=== PATIENT | female | born 1995 | race African-American/Black ===

== ENCOUNTER 2017-08-06 05:19 | Inpatient (IN) ==
[2017-08-06] MEDS ORDERED: diphenhydrAMINE 50 MG/1 ML VIAL IV PRN ×2 (05:30→09:00)
[2017-08-06] MEDS ORDERED: OXYTOCIN/LR 20 UNIT/1,000 ML BAG IV SCH (05:30)
[2017-08-06] MEDS ORDERED: ONDANSETRON 4 MG/2 ML VIAL IV PRN ×2 (05:30→20:51)
[2017-08-06] MEDS ORDERED: PENICILLIN G POTASSIUM INJ 5,000,000 UNIT in SODIUM CHLORIDE 0.9% 100 ML IV ONE (06:00)
[2017-08-06 06:16] LABS: Basophils % 0.3 % (0.0-0.8); Eosinophils # 0.1 10*3/uL (0.0-0.87); Eosinophils % 0.9 % (0.00-10.9); Hematocrit 27.1 VOL% (35.7-47.0); Hemoglobin 8.4 GM/DL (12.0-16.0); Immature Granulocytes % 1.1 %; Immature Granulocytes Absolute 0.08 #; Lymphocytes # 1.1 10*3/uL (1.4-4.0); Lymphocytes % 16.1 % (21.3-54.2); Mean Corpuscular Hemoglobin 24 PG (27-34); Mean Corpuscular Volume 77.9 FL (87-102); Mean Platelet Volume 11.9 FL (9.6-12.0); Monocytes # 0.5 10*3/uL (0.11-0.8); Monocytes % 6.8 % (1.7-12.7); Neutrophils # 5.2 10*3/uL (1.4-7.4); Neutrophils % 74.8 % (38.7-73.9); Platelet Count 207 T/CUMM (130-400); Red Blood Count 3.48 MC/CUMM (3.8-5.5); Red Cell Distribution Width 15.8 % (9.3-17.3)
[2017-08-06] MEDS ORDERED: AMPICILLIN INJ 2,000 MG in SODIUM CHLORIDE 0.9% 100 ML IV ONE (06:30)
[2017-08-06 06:40] LABS: Albumin 2.9 G/DL (3.4-5.0); Bilirubin,Total 0.6 MG/DL (0.2-1.0); Calcium 8.8 MG/DL (8.5-10.1); Osmolality,Calculated 272.7 MOS/KG (273-304); Potassium 3.7 MMOL/L (3.5-5.1); Total Protein 6.9 G/DL (6.4-8.3)
[2017-08-06] MEDS ORDERED: CITRIC ACID/SODIUM CITRATE 30 ML UDCUP PO ONE ×2 (09:00→14:30)
[2017-08-06] MEDS ORDERED: FAMOTIDINE 20 MG/2 ML VIAL IV ONE ×2 (09:00→14:30)
[2017-08-06] MEDS ORDERED: ePHEDrine 50 MG/ML AMP IV PRN (09:00)
[2017-08-06] MEDS ORDERED: PROMETHAZINE 25 MG/1 ML VIAL IM ONE (09:00)
[2017-08-06] MEDS ORDERED: LACTATED RINGERS 1,000 ML IV ONE (09:00)
[2017-08-06] MEDS ORDERED: LACTATED RINGERS 250 ML IV PRN (09:00)
[2017-08-06] MEDS ORDERED: fentaNYL 2 MCG/ROPIV 0.2% EPID 150 ML EPIDURAL SCH (09:30)
[2017-08-06] MEDS ORDERED: LACTATED RINGERS 1,000 ML IV SCH ×2 (11:00→20:51)
[2017-08-06] MEDS ORDERED: AMPICILLIN INJ 1,000 MG in SODIUM CHLORIDE 0.9% 100 ML IV SCH (11:00)
[2017-08-06 11:34] LABS: Apearance,Urine CLEAR (Clear); Bacteria,Urine Occasional /HPF (Few); Bilirubin,Urine Negative (Negative); Blood, Urine Negative (Negative); Glucose,Urine (UA) Negative (Negative); Ketones,Urine 20 mg/dL (Negative); Mucus,Urine Occasional /LPF (Occasional); Nitrite,Urine Negative (Negative); Protein,Urine Negative; RBC,Urine <1 /HPF (0-4); Squamous Epithelial Cell,Urine Occasional /HPF (0-10); Urine Color Yellow (Yellow); Urine Specific Gravity 1.023 (1.001-1.035); WBC,Urine <1 /HPF (0-6)
[2017-08-06] MEDS ORDERED: BUTORPHANOL 2 MG/ML VIAL IV PRN (12:23)
[2017-08-06] MEDS ORDERED: MEPERIDINE 50 MG/1 ML VIAL IV PRN (12:23)
[2017-08-06] MEDS ORDERED: hydrOXYzine HCL 25 MG/1 ML VIAL IM PRN (12:24)
[2017-08-06] MEDS ORDERED: INFLUENZA VIRUS VACCINE 0.5 ML SYRINGE IM ONE (13:00)
[2017-08-06] MEDS ORDERED: IBUPROFEN 800 MG TABLET PO PRN ×2 (15:23→20:51)
[2017-08-06] MEDS ORDERED: ACETAMINOPHEN/CODEINE 300-30 MG TABLET PO PRN (15:23)
[2017-08-06] MEDS ORDERED: MAGNESIUM HYDROXIDE SUSP 30 ML UDCUP PO PRN (20:51)
[2017-08-06] MEDS ORDERED: BISACODYL 10 MG SUPP RECTAL PRN (20:51)
[2017-08-06] MEDS ORDERED: ACETAMINOPHEN 325 MG TABLET PO PRN (20:51)
[2017-08-06] MEDS ORDERED: FERROUS SULFATE 325 MG TABLET PO SCH (21:00)
[2017-08-06] MEDS: DOCUSATE SODIUM 100 MG CAPSULE PO SCH (22:02)
[2017-08-07 09:01] LABS: Basophils % 0.3 % (0.0-0.8); Eosinophils # 0.1 10*3/uL (0.0-0.87); Eosinophils % 0.6 % (0.00-10.9); Hematocrit 24.7 VOL% (35.7-47.0); Immature Granulocytes % 0.7 %; Immature Granulocytes Absolute 0.08 #; Lymphocytes # 1.4 10*3/uL (1.4-4.0); Lymphocytes % 12.6 % (21.3-54.2); Mean Corpuscular HGB Conc 31.2 GM/DL (32-36); Mean Corpuscular Hemoglobin 24 PG (27-34); Mean Corpuscular Volume 77.2 FL (87-102); Mean Platelet Volume 12.4 FL (9.6-12.0); Monocytes # 0.8 10*3/uL (0.11-0.8); Monocytes % 6.8 % (1.7-12.7); Neutrophils # 8.9 10*3/uL (1.4-7.4); Platelet Count 192 T/CUMM (130-400); Red Cell Distribution Width 15.8 % (9.3-17.3); White Blood Count 11.2 T/CUMM (4-12)
[2017-08-07 09:16] LABS: Hemoglobin 7.7 GM/DL (12.0-16.0)
[2017-08-07] MEDS: DOCUSATE SODIUM 100 MG CAPSULE PO SCH ×2 (10:06→20:44)
[2017-08-07] MEDS: FERROUS SULFATE 325 MG TABLET PO SCH ×2 (10:06→20:44)
[2017-08-08] MEDS: DOCUSATE SODIUM 100 MG CAPSULE PO SCH (08:24)
[2017-08-08] MEDS: FERROUS SULFATE 325 MG TABLET PO SCH (08:24)
[2017-08-08] MEDS ORDERED: INFLUENZA VIRUS VACCINE 0.5 ML SYRINGE IM ONE (09:13)
[2017-08-08 11:08] VITALS: BP 106/69
== END 2017-08-08 13:45 | disposition home or self-care (01) | DRG 560 ==
LOC: N.LD 05:20 → N.OB 15:09
PROVIDERS: ADMIT Obstetrics & Gynecology; ATTEND Obstetrics & Gynecology

== ENCOUNTER 2018-10-26 02:45 | Inpatient (IN) ==
[2018-10-26] MEDS ORDERED: LACTATED RINGERS 250 ML IV ONE (02:53)
[2018-10-26] MEDS ORDERED: BUTORPHANOL 2 MG/ML VIAL IV PRN (02:53)
[2018-10-26] MEDS ORDERED: MEPERIDINE 50 MG/1 ML VIAL IM PRN (02:53)
[2018-10-26] MEDS ORDERED: ONDANSETRON 4 MG/2 ML VIAL IV PRN ×2 (02:53→04:50)
[2018-10-26] MEDS ORDERED: TRANEXAMIC ACID 1,000 MG/10 ML VIAL ONE (02:57)
[2018-10-26] MEDS ORDERED: AMPICILLIN INJ 2,000 MG in SODIUM CHLORIDE 0.9% 100 ML IV ONE (02:57)
[2018-10-26] MEDS ORDERED: miSOPROStol 200 MCG TABLET ONE (02:57)
[2018-10-26] MEDS ORDERED: CARBOPROST TROMETHAMINE 250 MCG/ML AMP IM ONE (02:58)
[2018-10-26] MEDS ORDERED: METHYLERGONOVINE 0.2 MG/1 ML AMP ONE (02:58)
[2018-10-26] MEDS ORDERED: LACTATED RINGERS 1,000 ML IV SCH ×3 (03:00→05:00)
[2018-10-26] MEDS ORDERED: hydrOXYzine HCL 25 MG/1 ML VIAL IM PRN (03:10)
[2018-10-26] MEDS ORDERED: diphenhydrAMINE 50 MG/1 ML VIAL IV PRN ×2 (03:10)
[2018-10-26] MEDS ORDERED: ONDANSETRON 4 MG/2 ML VIAL IV ONE (03:10)
[2018-10-26] MEDS ORDERED: ePHEDrine 50 MG/ML AMP IV PRN (03:10)
[2018-10-26] MEDS ORDERED: NALOXONE 0.4 MG/ML VIAL IV PRN (03:10)
[2018-10-26 03:26] LABS: Basophils % 0.2 % (0.0-0.8); Eosinophils # 0.1 10*3/uL (0.0-0.87); Eosinophils % 0.5 % (0.00-10.9); Hematocrit 26.9 VOL% (35.7-47.0); Hemoglobin 7.9 GM/DL (12.0-16.0); Immature Granulocytes % 1.4 %; Immature Granulocytes Absolute 0.24 #; Lymphocytes % 11.6 % (21.3-54.2); Mean Corpuscular HGB Conc 29.4 GM/DL (32-36); Mean Corpuscular Hemoglobin 23 PG (27-34); Mean Corpuscular Volume 77.1 FL (87-102); Mean Platelet Volume 11.5 FL (9.6-12.0); Monocytes # 1.6 10*3/uL (0.11-0.8); Monocytes % 9.4 % (1.7-12.7); Neutrophils # 13.4 10*3/uL (1.4-7.4); Neutrophils % 76.9 % (38.7-73.9); Platelet Count 201 T/CUMM (130-400); Red Blood Count 3.49 MC/CUMM (3.8-5.5); White Blood Count 17.4 T/CUMM (4-12)
[2018-10-26] MEDS ORDERED: CITRIC ACID/SODIUM CITRATE 30 ML UDCUP ONE (03:26)
[2018-10-26] MEDS ORDERED: INFLUENZA VIRUS VACCINE 0.5 ML SYRINGE IM ONE (03:29)
[2018-10-26] MEDS ORDERED: fentaNYL 2 MCG/ROPIV 0.2% EPID 100 ML EPIDURAL SCH (03:30)
[2018-10-26 03:43] LABS: Albumin 2.9 G/DL (3.4-5.0); Calcium 8.9 MG/DL (8.5-10.1); Osmolality,Calculated 270.8 MOS/KG (273-304); Potassium 3.3 MMOL/L (3.5-5.1); Total Protein 7.6 G/DL (6.4-8.3)
[2018-10-26] MEDS ORDERED: LIDOCAINE 1% 50 ML VIAL ONE (03:49)
[2018-10-26] MEDS ORDERED: MAGNESIUM HYDROXIDE SUSP 30 ML UDCUP PO PRN (04:50)
[2018-10-26] MEDS ORDERED: ACETAMINOPHEN 325 MG TABLET PO PRN (04:50)
[2018-10-26] MEDS ORDERED: BISACODYL 10 MG SUPP RECTAL PRN (04:50)
[2018-10-26 05:32] LABS: Apearance,Urine CLEAR (Clear); Bilirubin,Urine Negative (Negative); Blood, Urine Negative (Negative); Glucose,Urine (UA) Negative (Negative); Ketones,Urine 80 mg/dL (Negative); Mucus,Urine Occasional /LPF (Occasional); Nitrite,Urine Negative (Negative); Protein,Urine 30 MG/DL; RBC,Urine 1 /HPF (0-4); Squamous Epithelial Cell,Urine Occasional /HPF (0-10); Urine Color Yellow (Yellow); Urine Specific Gravity 1.024 (1.001-1.035); WBC,Urine <1 /HPF (0-6)
[2018-10-26] MEDS: OXYTOCIN/LR 20 UNIT/1,000 ML BAG IV SCH ×2 (07:24→07:47)
[2018-10-26] MEDS ORDERED: MEPERIDINE 50 MG/1 ML VIAL IV ONE (07:28)
[2018-10-26] MEDS: IBUPROFEN 800 MG TABLET PO PRN (10:46)
[2018-10-26 11:40] LABS: Basophils # 0.1 10*3/uL (0.0-0.2); Basophils % 0.2 % (0.0-0.8); Hematocrit 24.9 VOL% (35.7-47.0); Hemoglobin 7.6 GM/DL (12.0-16.0); Immature Granulocytes % 1.2 %; Immature Granulocytes Absolute 0.29 #; Lymphocytes # 1.1 10*3/uL (1.4-4.0); Lymphocytes % 4.5 % (21.3-54.2); Mean Corpuscular HGB Conc 30.5 GM/DL (32-36); Mean Corpuscular Hemoglobin 23 PG (27-34); Mean Corpuscular Volume 76.1 FL (87-102); Mean Platelet Volume 11.7 FL (9.6-12.0); Monocytes # 1.8 10*3/uL (0.11-0.8); Monocytes % 7.7 % (1.7-12.7); Neutrophils # 20.6 10*3/uL (1.4-7.4); Neutrophils % 86.4 % (38.7-73.9); Platelet Count 175 T/CUMM (130-400); Red Blood Count 3.27 MC/CUMM (3.8-5.5); Red Cell Distribution Width 15.9 % (9.3-17.3); White Blood Count 23.8 T/CUMM (4-12)
[2018-10-26 12:17] LABS: Band Neutrophils 2 % (0-10); Lymphocytes 9 % (20-55); Platelet Estimate Adequate; Segmented Neutrophils 85 % (50-85); Total Cells Counted 100
[2018-10-26 12:18] LABS: Hypochromasia 1+; Ovalocytes Slight
[2018-10-26] MEDS: DOCUSATE SODIUM 100 MG CAPSULE PO SCH (20:36)
[2018-10-27] MEDS: IBUPROFEN 800 MG TABLET PO PRN ×2 (00:14→19:27)
[2018-10-27 06:10] LABS: Basophils # 0.1 10*3/uL (0.0-0.2); Basophils % 0.2 % (0.0-0.8); Eosinophils # 0.1 10*3/uL (0.0-0.87); Eosinophils % 0.4 % (0.00-10.9); Hematocrit 24.9 VOL% (35.7-47.0); Hemoglobin 7.3 GM/DL (12.0-16.0); Immature Granulocytes % 1.7 %; Immature Granulocytes Absolute 0.34 #; Lymphocytes # 2.1 10*3/uL (1.4-4.0); Lymphocytes % 10.3 % (21.3-54.2); Mean Corpuscular HGB Conc 29.3 GM/DL (32-36); Mean Corpuscular Hemoglobin 23 PG (27-34); Mean Corpuscular Volume 77.1 FL (87-102); Monocytes # 1.1 10*3/uL (0.11-0.8); Monocytes % 5.5 % (1.7-12.7); Neutrophils # 16.5 10*3/uL (1.4-7.4); Neutrophils % 81.9 % (38.7-73.9); Platelet Count 192 T/CUMM (130-400); Red Blood Count 3.23 MC/CUMM (3.8-5.5); Red Cell Distribution Width 15.9 % (9.3-17.3); White Blood Count 20.2 T/CUMM (4-12)
[2018-10-27 06:36] LABS: Eosinophils 1 % (0-10); Hypochromasia 1+; Lymphocytes 13 % (20-55); Ovalocytes Slight; Platelet Estimate Adequate; Segmented Neutrophils 81 % (50-85); Total Cells Counted 100
[2018-10-27] MEDS: MULTIVITAMIN (PRENATAL) TABLET PO SCH (08:28)
[2018-10-27] MEDS: DOCUSATE SODIUM 100 MG CAPSULE PO SCH ×3 (08:29→20:52)
[2018-10-27] MEDS: IRON (CARBONYL)/VIT C/B12/FA TABLET PO SCH (12:10)
[2018-10-28 08:15] VITALS: BP 90/54
[2018-10-28] MEDS: DOCUSATE SODIUM 100 MG CAPSULE PO SCH (08:58)
[2018-10-28] MEDS: MULTIVITAMIN (PRENATAL) TABLET PO SCH (08:58)
[2018-10-28] MEDS: IRON (CARBONYL)/VIT C/B12/FA TABLET PO SCH (08:58)
[2018-10-28] MEDS ORDERED: DIPH/TET/ACEL PERT BOOSTER VACCINE 0.5 ML VIAL IM ONE (09:00)
[2018-10-28 13:20] LABS: Hepatitis B Surface Ag Quant 0.41 Index; Hepatitis B Surface Ag Result Negative (Negative)
[2018-10-28 13:50] LABS: HIV Antigen/Antibody Result Nonreactive (Nonreactive)
== END 2018-10-28 14:10 | disposition home or self-care (01) | DRG 560 ==
LOC: N.LDOUT 02:45 → N.LD 02:46 → N.OB 13:59
PROVIDERS: ADMIT Obstetrics & Gynecology; ATTEND Obstetrics & Gynecology

== ENCOUNTER 2020-06-14 00:25 | Inpatient (IN) ==
[2020-06-14] MEDS ORDERED: ONDANSETRON 4 MG/2 ML VIAL IV PRN (00:35)
[2020-06-14] MEDS ORDERED: BUTORPHANOL 2 MG/ML VIAL IV PRN (00:35)
[2020-06-14] MEDS ORDERED: LACTATED RINGERS 500 ML IV PRN (00:35)
[2020-06-14] MEDS ORDERED: MEPERIDINE 50 MG/1 ML VIAL IM PRN (00:35)
[2020-06-14] MEDS ORDERED: LACTATED RINGERS 1,000 ML IV SCH ×2 (01:00→17:30)
[2020-06-14 01:24] LABS: Basophils % 0.3 % (0.0-0.8); Eosinophils # 0.1 10*3/uL (0.0-0.87); Eosinophils % 0.6 % (0.00-10.9); Hematocrit 27.5 VOL% (35.7-47.0); Hemoglobin 8.3 GM/DL (12.0-16.0); Immature Granulocytes % 3.1 %; Immature Granulocytes Absolute 0.31 #; Lymphocytes # 1.4 10*3/uL (1.4-4.0); Lymphocytes % 13.6 % (21.3-54.2); Mean Corpuscular HGB Conc 30.2 GM/DL (32-36); Mean Corpuscular Volume 78.1 FL (87-102); Mean Platelet Volume 11.3 FL (9.6-12.0); Monocytes % 7.3 % (1.7-12.7); Neutrophils % 75.1 % (38.7-73.9); Platelet Count 216 T/CUMM (130-400); Red Blood Count 3.52 MC/CUMM (3.8-5.5); Red Cell Distribution Width 16.8 % (9.3-17.3); White Blood Count 10.1 T/CUMM (4-12)
[2020-06-14 01:30] LABS: Albumin 2.8 G/DL (3.4-5.0); Bilirubin,Total 0.8 MG/DL (0.2-1.0); Total Protein 7.6 G/DL (6.4-8.3)
[2020-06-14] MEDS ORDERED: OXYTOCIN/LR 20 UNIT/1,000 ML BAG IV SCH (05:00)
[2020-06-14] MEDS ORDERED: AMPICILLIN INJ 2,000 MG in SODIUM CHLORIDE 0.9% 100 ML IV ONE (05:00)
[2020-06-14] MEDS: LACTATED RINGERS 1,000 ML IV SCH ×2 (05:04→07:08)
[2020-06-14] MEDS ORDERED: ONDANSETRON 4 MG/2 ML VIAL IV ONE (05:40)
[2020-06-14] MEDS ORDERED: CITRIC ACID/SODIUM CITRATE 30 ML UDCUP PO ONE (05:40)
[2020-06-14] MEDS ORDERED: PROMETHAZINE 25 MG/1 ML VIAL IM ONE (05:40)
[2020-06-14] MEDS ORDERED: ePHEDrine 50 MG/ML VIAL IV PRN (05:40)
[2020-06-14] MEDS ORDERED: NALOXONE 0.4 MG/ML VIAL IV PRN (05:40)
[2020-06-14] MEDS ORDERED: FAMOTIDINE 20 MG/2 ML VIAL IV ONE (05:40)
[2020-06-14] MEDS ORDERED: diphenhydrAMINE 50 MG/1 ML VIAL IV PRN ×2 (05:40)
[2020-06-14] MEDS ORDERED: LACTATED RINGERS 1,000 ML IV ONE (05:40)
[2020-06-14] MEDS ORDERED: hydrOXYzine HCL 25 MG/1 ML VIAL IM PRN (05:40)
[2020-06-14] MEDS ORDERED: fentaNYL 2 MCG/ROPIV 0.2% EPID 100 ML EPIDURAL SCH (06:00)
[2020-06-14] MEDS ORDERED: AMPICILLIN INJ 1,000 MG in SODIUM CHLORIDE 0.9% 100 ML IV SCH (09:00)
[2020-06-14 10:07] LABS: Bilirubin,Urine Negative (Negative); Blood, Urine Negative (Negative); Glucose,Urine (UA) Negative (Negative); Ketones,Urine 20 mg/dL (Negative); Mucus,Urine Occasional /LPF (Occasional); Nitrite,Urine Negative (Negative); Protein,Urine Negative; RBC,Urine 3 /HPF (0-4); Squamous Epithelial Cell,Urine Occasional /HPF (0-10); Urine Appearance CLEAR (Clear); Urine Color Yellow (Yellow); Urine Specific Gravity 1.015 (1.001-1.035); WBC,Urine 1 /HPF (0-6)
[2020-06-14] MEDS ORDERED: CARBOPROST TROMETHAMINE 250 MCG/ML AMP IM ONE (11:22)
[2020-06-14] MEDS ORDERED: METHYLERGONOVINE 0.2 MG/1 ML AMP ONE (11:22)
[2020-06-14] MEDS ORDERED: miSOPROStoL 200 MCG TABLET ONE (11:22)
[2020-06-14] MEDS ORDERED: TRANEXAMIC ACID 1,000 MG/10 ML VIAL ONE (11:22)
[2020-06-14 11:57] LABS: Cord Venous Blood HCO3 23.5 MMOL/L; Cord Venous Blood PCO2 39.8 MMHG; Cord Venous Blood PO2 36.3
[2020-06-14] MEDS ORDERED: IBUPROFEN 800 MG TABLET PO PRN (15:00)
[2020-06-14] MEDS ORDERED: MAGNESIUM HYDROXIDE SUSP 30 ML UDCUP PO PRN (17:06)
[2020-06-14] MEDS ORDERED: ACETAMINOPHEN 325 MG TABLET PO PRN (17:06)
[2020-06-14] MEDS ORDERED: BISACODYL 10 MG SUPP RECTAL PRN (17:06)
[2020-06-14] MEDS: IBUPROFEN 800 MG TABLET PO PRN (17:20)
[2020-06-14] MEDS ORDERED: DOCUSATE SODIUM 100 MG CAPSULE PO SCH (21:00)
[2020-06-14] MEDS: DOCUSATE SODIUM 100 MG CAPSULE PO SCH (21:03)
[2020-06-15] MEDS: IBUPROFEN 800 MG TABLET PO PRN ×2 (02:16→21:14)
[2020-06-15 06:42] LABS: Basophils # 0.1 10*3/uL (0.0-0.2); Basophils % 0.4 % (0.0-0.8); Eosinophils # 0.1 10*3/uL (0.0-0.87); Eosinophils % 0.5 % (0.00-10.9); Hematocrit 25.1 VOL% (35.7-47.0); Hemoglobin 7.7 GM/DL (12.0-16.0); Immature Granulocytes % 1.3 %; Immature Granulocytes Absolute 0.17 #; Lymphocytes # 1.8 10*3/uL (1.4-4.0); Lymphocytes % 13.3 % (21.3-54.2); Mean Corpuscular HGB Conc 30.7 GM/DL (32-36); Mean Corpuscular Volume 77.2 FL (87-102); Mean Platelet Volume 11.9 FL (9.6-12.0); Monocytes % 6.6 % (1.7-12.7); Neutrophils % 77.9 % (38.7-73.9); Platelet Count 193 T/CUMM (130-400); Red Blood Count 3.25 MC/CUMM (3.8-5.5); Red Cell Distribution Width 16.9 % (9.3-17.3); White Blood Count 13.2 T/CUMM (4-12)
[2020-06-15] MEDS: IRON (CARBONYL)/VIT C/B12/FA TABLET PO SCH (08:55)
[2020-06-15] MEDS: MULTIVITAMIN (PRENATAL) TABLET PO SCH (08:55)
[2020-06-15] MEDS: DOCUSATE SODIUM 100 MG CAPSULE PO SCH ×2 (08:57→21:14)
[2020-06-16] MEDS: DOCUSATE SODIUM 100 MG CAPSULE PO SCH (10:09)
[2020-06-16] MEDS: MULTIVITAMIN (PRENATAL) TABLET PO SCH (10:09)
[2020-06-16] MEDS: IRON (CARBONYL)/VIT C/B12/FA TABLET PO SCH (10:09)
[2020-06-16 11:29] VITALS: BP 108/67
== END 2020-06-16 13:50 | disposition home or self-care (01) | DRG 560 ==
LOC: N.LD 00:25 → N.OB 14:37
PROVIDERS: ADMIT Obstetrics & Gynecology; ATTEND Obstetrics & Gynecology